=== PATIENT | male | born 1995 | race Caucasian/White ===

== ENCOUNTER 2017-07-12 06:03 | Emergency (ER) | payer SELFPAY ==
[~2017-07-12] VITALS: Ht 188 cm; Wt 111.2 kg
[2017-07-12] MEDS ORDERED: MOTRIN400 MG PO (07:05)
[2017-07-12] MEDS ORDERED: VOLTAREN1%GEL TOP (07:05)
[2017-07-12 07:14] VITALS: BP 128/69
== END 2017-07-12 07:20 | disposition home or self-care (01) | DRG 206 ==
LOC: ED 06:03
DX: M94.0 Chondrocostal junction syndrome [Tietze] (principal); R07.89 Other chest pain